=== PATIENT | male | born 1990 | race Caucasian/White ===

== ENCOUNTER → 2023-06-12 11:55 | Outpatient (REF) | payer OTHER, SELFPAY | LOC: REG 11:55 | PROVIDERS: ATTENDING PHYSICIAN Nurse Practitioner | DX: R10.11 Right upper quadrant pain (principal) | CPT/HCPCS: 71046 ==

== ENCOUNTER 2023-12-01 16:34 | Day surgery (SDC) | payer OTHER, SELFPAY ==
[2023-12-01] VITALS (7 sets, daily range): BP systolic 88–136; BP diastolic 17–96; BMI 28.0; BMI 27.8
[2023-12-01 12:54] LABS: % Basophils 0.2 % (0-2); % Eosinophils 0.4 % (0-6); % Immature Granulocytes 0.3 % (0-0.5); % Lymphocytes 12.8 % (20.5-51.1); % Neutrophils 80.3 % (42.2-75.2); Absolute Eosinophils 0.1 10^3/uL (0-0.7); Absolute Lymphocytes 1.6 10^3/uL (1.2-3.4); Absolute Monocytes 0.7 10^3/uL (0.1-0.6); Hematocrit 39.7 % (39.0-52.0); Hemoglobin 14.3 g/dL (13.0-18.0); Mean Corpuscular Hgb 29.4 pg (27.0-31.0); Mean Corpuscular Volume 81.5 fL (80.0-94.0); Mean Platelet Volume 9.3 fL (7.4-10.4); Nucleated Red Blood Cells % 0 % (-); Platelet Count 288 10^3/uL (130-400); Red Blood Cell Count 4.87 10^6/uL (4.70-6.10); Red Cell Dist. Width 12.2 % (11.5-14.5); White Blood Cell Count 12.4 10^3/uL (4.8-10.8)
[2023-12-01 12:58] LABS: Urine Albumin Negative (Neg - Trace); Urine Bilirubin Negative (Negative); Urine Character Clear (Clear); Urine Color Yellow; Urine Glucose Negative (Negative); Urine Ketone Negative (Negative); Urine Leukocyte Negative (Negative); Urine Nitrite Negative (Negative); Urine Occult Blood Negative (Negative); Urine Urobilinogen Negative (Neg - 1+)
--- NOTE | 2023-12-01 13:03 | ED.GENMED ---
History of Present Illness
General
Chief Complaint: Abdominal Pain
Source: patient
Exam Limitations: none
Time Seen by Provider: 12/01/23 12:35
Nursing documentation reviewed up to this point in time: agreed with
History of Present Illness
History of Present Illness:
The patient is a very pleasant 33 yr old man with constant RLQ pain since yesterday. Pt reports mild nausea. pain is worse with movement and bearing down. pt reports no BM today. one episode of nonbloody diarrhea yesterday. no radiation of pain. no
urinary symptoms
Past History
Past History
ED Past Medical History: HTN
ED Past Surgical History: Other (thoracentesis)
Social History
Tobacco: Other
Alcohol: Other
Drug: Other
Personal:
Living: with family
Employment: Employed
Family History
Family History: Other
Review of Systems
Review of Systems
Allergies reviewed?: Yes
All Other Systems: ROS reviewed and negative except as documented in HPI and ROS
Constitutional: Reports no symptoms
EENT: Reports no symptoms
Respiratory: Reports no symptoms
Cardiac: Reports no symptoms
ABD/GI: Reports abdominal pain, nausea, diarrhea and constipated
: Reports no symptoms
Musculoskeletal: Reports no symptoms
Skin: Reports no symptoms
Neurological: Reports no symptoms
Endocrine: Reports no symptoms
Hematologic/Lymphatic: Reports no symptoms
Psychiatric: Reports no symptoms
Phy Exam
Physical Exam
Physical Exam:
Physical Exam
General: no apparent distress, not acutely ill
Neck: supple. no meningeal signs. normal psoterior pharynx
Heart: s1/s2 regular rate and rhythm, no murmur. equal radial pulses.
Lungs: no acute respiratory distress. clear bilaterally
Abdomen: Diminished bowel sounds. Right lower quadrant tenderness. Positive rebound. No guarding. No periumbilical tenderness
Neuro: alert and oriented. no focal neurological deficits
Skin: no rash
Psychiatric: well kept. interactive and cooperative
Extremities: no edema. no calf tenderness. negative homans. good distal pulses
Course
Orders/Labs/Results
Orders:
Orders
12/01/23 12:45
Complete Blood Count/With Diff Urgent
Comprehensive Metabolic Panel Urgent
Urinalysis Reflex To Culture Urgent
Date Specimen was Collected: 12/01/23
Time Specimen was Collected: 12:43
12/01/23 13:03
CT Abd/pelvis W Iv Cont Urgent
Comment:
Reason For Exam: RLQ pain since yesterday
12/01/23 13:06
Ketorolac [Toradol] 30 mg IV NOW STA
12/01/23 15:12
Piperacillin/Tazo 4.5 Gram [Zosyn] 4.5 gram in 100 ml IV NOW
Abnormal Lab Results
12/01/23
12:45
WBC 12.4 H 10^3/uL
(4.8-10.8)
Absolute Neuts (auto) 10.0 H 10^3/uL
(1.4-6.5)
Absolute Monos (auto) 0.7 H 10^3/uL
(0.1-0.6)
Neutrophils % 80.3 H %
(42.2-75.2)
Lymphocytes % 12.8 L %
(20.5-51.1)
Chloride 97 L mmol/L
(98-107)
Glucose 100 H mg/dl
(70-99)
ALT 73 H U/L
(0-50)
12/01/23 12:45
12/01/23 12:45
Vital Signs
Initial and Last Documented VS:
Initial Vital Signs
Temp Pulse Resp BP Pulse Ox
98.4 F 72 16 136/96 98
12/01/23 11:58 12/01/23 11:58 12/01/23 11:58 12/01/23 11:58 12/01/23 11:58
Last Documented Vital Signs
Temp Pulse Resp BP Pulse Ox
98.4 F 72 16 129/79 98
12/01/23 11:58 12/01/23 11:58 12/01/23 11:58 12/01/23 12:35 12/01/23 14:15
MDM/Problems Addressed
Differential Diagnosis Includes:
acute appy, acute diverticulitis, constipation, pyelo
MDM/Problems Addressed:
acute RLQ ab pain
Chronic conditions affecting care: HTN
*Radiology
Radiology exam reviewed: radiology read reviewed
*Pulse Oximetry
Patient hypoxic: no
*EKG
Interpreted by ED Provider?: NA
*Congressional Assistant Interpretation
Rate: Congressional Assistant- N/A
*Critical Care Note
Total Time (30-74mins, 75-104mins- exclusive of procedures): Not Applicable
Patient Management
Discussion with other providers: Other (Reached out to Dr. Jai Saldaña to discuss the patient's presentation and CT)
ED Attending Note
-
Portions of this chart may have been created with voice recognition software.� Occasional wrong word or��sound alike� substitutions may have occurred due to the inherent limitations of voice recognition software.
Discharge Plan
Departure
Patient Disposition: Admit
Date of Disposition: 12/01/23
Time of Disposition: 15:04
Admit to: Med/Surg
Admit to doctor: Dr Saldaña
Presentation/result/management discussed w/ accepting MD/DO: Dr Saldaña
Patient with high blood pressure during this ER visit?: Yes
Condition: Good
Covid-19: Not Applicable
Discharge Problem:
Acute appendicitis
Prescriptions:
No Action
lisinopril 10 MG tablet
10 mg PO DAILY Qty: 30 0RF
hydrochlorothiazide 25 mg Tablet
25 mg PO DAILY
amoxicillin-pot clavulanate [Augmentin] 875-125 mg Tablet
1 tab PO BID
amlodipine 5 MG tablet
10 mg PO DAILY
Interventions
Interventions:
*Risk Screen - Suicide Last Done: 12/01/23 11:58
*General Assessment Last Done: 12/01/23 11:58
*Neglect/Abuse Screening Last Done: 12/01/23 11:58
ED- Fall Risk Assessment Last Done: 12/01/23 12:57
*ED COVID-19 Vaccine History Last Done: 12/01/23 11:58
AI-Jfduyv-Gomttwaekr Assessment Last Done: 12/01/23 12:57
Discharge Date and Time
Print Language: UPPER SORBIAN
[2023-12-01] MEDS: TORADOL 30 MG IV (13:08)
[2023-12-01 13:14] LABS: ALT (SGPT) 73 U/L (0-50); AST (SGOT) 34 U/L (17-59); Albumin 4.8 g/dl (3.5-5.0); Alkaline Phosphatase 116 U/L (38-126); Blood Urea Nitrogen 11 mg/dl (9-20); Calcium 10.1 mg/dl (8.4-10.2); Carbon Dioxide 29 mmol/L (22-30); Chloride 97 mmol/L (98-107); Estimated Creatinine Clearance > 125 ml/min; Glucose 100 mg/dl (70-99); Potassium 4.3 mmol/L (3.5-5.1); Sodium 137 mmol/L (135-145); Total Bilirubin 1.1 mg/dl (0.2-1.3); Total Protein 7.1 g/dl (6.3-8.2); eGFR > 60.00
--- NOTE | 2023-12-01 15:28 | HPS.HSE ---
Addendum entered and electronically signed by Jai Saldaña MD 12/02/23 10:46:
I saw and examined the patient.
The Medical Education Coordinator's note was reviewed and I agree with the note.
Comment: 33M with acute onset RLQ pain. CT c/w acute appendicitis. Exam with ttp to RLQ. PLan for lap appy.
Original Note:
Family Physician
-
Family Physician:
Chief Complaint
-
RLQ pain
History of Present Illness
33 yo male with a h/o right shoulder labral repair and HTN who has been on Augmentin for sinusitis for the past 8-9 days who presents with abdominal pain which began yesterday. Initially, his pain was generalized but this morning it localized to the
right lower quadrant with associated nausea and vomiting. He has had a poor appetite all day and has not eaten. He denies fevers or chills. He had an episode of diarrhea yesterday prior to onset of pain but has passed no BM's since. He denies
difficulty voiding but does note pain increases as he empties his bladder. He denies fevers or chills.
Medical History
Past Medical History
Past Medical History: Reports HTN
Past Surgical History: Reports Orthopedic (labral repair right shoulder)
Social History
Tobacco: Non-smoker
Alcohol: Occasional
Personal:
Living: With Family
Family History
Family History: Not pertinent
Allergies / Home Medications
Allergies reflects when Allergies were last updated in [facility].
Home Medications with original date entered in [facility]
Allergy/Medication List:
Patient Allergies
Allergy/AdvReac Type Severity Reaction Status Date / Time
No Known Allergies Allergy Verified 10/01/20 09:49
�Medication �Instructions �Recorded �Confirmed �Type
lisinopril 10 mg tablet 10 mg PO DAILY #30 tabs 10/03/20 12/01/23 Rx
amlodipine 5 mg tablet 10 mg PO DAILY 12/01/23 12/01/23 History
amoxicillin 875 mg-potassium 1 tab PO BID 12/01/23 12/01/23 History
clavulanate 125 mg tablet
hydrochlorothiazide 25 mg tablet 25 mg PO DAILY 12/01/23 12/01/23 History
Review of Systems
-
History Source: Patient and Family
A 12 point ROS was completed and negative except as noted: Yes
Physical Exam
Vital Signs
Vital Signs
Temp Pulse Resp BP Pulse Ox
98.4 F 72 16 129/79 98
12/01/23 11:58 12/01/23 11:58 12/01/23 11:58 12/01/23 12:35 12/01/23 14:15
Physical Exam
General: Well Developed, Well Nourished and No Apparent Distress
HEENT: NormoCephalic and Moist mucous membranes
Respiratory: Non Labored Respirations
GI: Soft and Tender (RLQ without rebound, rigidity or guarding)
Skin: Warm and Dry
Neuro: Awake, Alert and AO x 3
Psych: Calm
Laboratory Results
-
12/01/23 12:45
12/01/23 12:45
Laboratory Results
Total Bilirubin 1.1 mg/dl (0.2-1.3) 12/01/23 12:45
AST 34 U/L (17-59) 12/01/23 12:45
ALT 73 U/L (0-50) H 12/01/23 12:45
Alkaline Phosphatase 116 U/L (38-126) 12/01/23 12:45
Data Reviewed
-
CT Scan: Image Personally Visualized and interpreted, Report Reviewed by me, Discussed with Physician, Discussed with Patient and Discussed with Family
Lab Data: Labs Reviewed by me, Discussed with Physician, Discussed with Patient and Discussed with Family
Old Records: Reviewed
Impression/Plan
-
IMPRESSION:
33 yo male presenting with 1 day of abdominal pain now localizing to the RLQ with n/v this am. Afebrile with stable vital signs. Mild leukocytosis on labs. CT imaging consistent with acute appendicitis without evidence of perforation.
Discussed operative intervention vs antibiotics alone; high likelihood of failure with abx alone given recent history of abx use. Will pursue surgical management.
PLAN:
Continue IV Zosyn 3.375gm q6h
Lap appendectomy once OR available, likely in AM
Clears tonight and NPO after MN
Analgesics/Antiemetics as needed
Continue home meds with parameters
SCD's for VTE ppx
[2023-12-01] MEDS: ZOSYN 100 IV (15:38)
--- NOTE | 2023-12-01 17:02 | PTCARENOTE ---
Patient received from ED in stretcher; Patient ambulated to bed; Patient alert to self, place, and time; States pain is in the right side of the abdomen, rates it between 6-7 out of 10, await medications to be verified; Patient denies
nausea/vomiting; Call kenny within reach; Bed in lowest position, wheels locked; Assessment ongoing
[2023-12-01] MEDS: NSS 1000 IV (17:15)
[2023-12-01] MEDS: ROXICODONE 5 MG PO (17:15)
[2023-12-01] MEDS: ZOSYN 50 IV (21:57)
[2023-12-02] VITALS (7 sets, daily range): BP systolic 119–152; BP diastolic 54–79
[2023-12-02] MEDS: ROXICODONE 5 MG PO ×2 (01:19→08:09)
[2023-12-02] MEDS: ZOSYN 50 IV ×2 (03:54→10:09)
[2023-12-02] MEDS: NSS 1000 IV (03:54)
--- NOTE | 2023-12-02 10:47 | OR.RPT ---
Operative Report
Operative Report
Primary Surgeon: Piotr
Assisting: Mohinder FRIAS
Pre-op Diagnosis: Acute appendicitis
Post-op Diagnosis: Same
Procedure Performed: Laparoscopic appendectomy
Anesthesia Type: GETA
Specimen / Cultures: Appendix
Estimated Blood Loss: 10cc
Complications: None immediate
Operative Findings: Inflamed distal appendix, dilated proximal appendix, no perforation, no pus, no gangrene
Date of Surgery: 12/02/23
Indications: This 33M developed right lower quadrant abdominal pain and on workup was found to have acute appendicitis. Laparoscopic appendectomy was elected.
Description of procedure: The patient was placed on the operating table in the supine position. General anesthesia was induced. A time-out was completed verifying correct patient, procedure, site, positioning, and special equipment prior to
beginning this procedure. An orogastric tube was placed. The abdomen was prepped and draped in the usual sterile fashion. A stab incision was made in left upper quadrant and the Veress needle was inserted. Proper position was confirmed by aspiration
and saline meniscus test. The abdomen was insufflated with carbon dioxide to a pressure of 12 mmHg. The patient tolerated insufflation well.
A 5mm optical trocar was then inserted at the left lower quadrant. The laparoscope was inserted and the abdomen inspected. No injuries from initial trocar placement or Veress needle insertion were noted. Additional trocars were then inserted in the
following locations: a 12-mm trocar at the umbilicus and a 5-mm trocar midline in the suprapubic space. The abdomen was inspected and no abnormalities were found. The table was placed in the Trendelenburg position with the right side up. The tip of
the appendix was gently grasped with an atraumatic grasper and retracted toward the patient�s feet and abdominal wall. This maneuver exposed the appendiceal blood supply which was controlled with the Ligasure device. Following this, a laparoscopic
linear cutting stapler with a 45mm sanchez load was deployed and used to transect the appendix at its base. The appendix was placed in an endoscopic retrieval bag, removed through the umbilical port, and passed off the table as a specimen.
We then turned our attention to the staple line, which was noted to be hemostatic. All free fluid was suctioned. The umbilical trocar site was closed at the fascial level laparoscopically with 2-0 PDS under direct vision. Secondary trocars were
removed under direct vision and noted to be hemostatic. The laparoscope was withdrawn and the abdomen was allowed to collapse. The skin was closed with subcuticular sutures of 4-0 monocryl and topical skin adhesive. The orogastric tube was removed.
The patient tolerated the procedure well and was taken to the postanesthesia care unit in stable condition.
--- NOTE | 2023-12-02 12:17 | CM ---
Patient seen at bedside with father present. patient states that he has had surgery and his plan is for discharge home with no needs. Patient lives with in an apartment with elevator. Patient PCP is Dr. Chavez and he uses the [facility] in [place]. Per
PA patient to be changed to SDS s/p surgery and patient updated about change. CM will continue to follow for discharge planning needs.
Plan; home with no needs.
--- NOTE | 2023-12-02 16:30 | W.DS.TRANS ---
DC Summary - Head Of Product
-
Discharge Instructions:
Discharge Diagnosis/Procedures Appendicitis with laparoscopic appendectomy
Diet Regular,As tolerated
Activity No strenuous activity
Additional Activity Do not lift over 15 pounds for the next 2-3
weeks
Driving Restrictions No driving for 24 hours
Bathing Restrictions OK to shower 24h after procedure
Wound Care Wash incisions gently with soap and water. Allow
the glue to flake off on it's own over the next
2-3 weeks
Instructions:
Stand-Alone Forms:
Changes to Home Medications: No
Discharge Medications:
DC Medications w/original date entered in [facility]
lisinopril 10 mg tablet 10 mg PO DAILY #30 tabs 10/03/20
amlodipine 5 mg tablet 10 mg PO DAILY 12/01/23
amoxicillin 875 mg-potassium clavulanate 125 mg tablet 1 tab PO BID 12/01/23
hydrochlorothiazide 25 mg tablet 25 mg PO DAILY 12/01/23
acetaminophen 325 mg tablet 650 mg (2 x 325 mg) PO Q4HPRN PRN mild pain #1 tab 12/02/23
ibuprofen 200 mg tablet 400 - 600 mg (2 - 3 x 200 mg) PO Q6HPRN PRN moderate pain #1 tab 12/02/23
oxycodone 5 mg tablet 5 mg PO Q4HPRN PRN breakthrough/severe pain #10 tabs 12/02/23
Home Medication Changes
Pending Results: No
== END 2023-12-02 14:14 | disposition home or self-care (01) ==
LOC: PACU 16:34
PROVIDERS: ATTENDING PHYSICIAN Surgery; EMERGENCY PHYSICIAN Emergency Medicine; FAMILY PHYSICIAN Internal Medicine
DX: K35.80 Unspecified acute appendicitis (principal); I10 Essential (primary) hypertension
CPT/HCPCS: 44970; 88304; 74177; 80053; 81003; 85025; 96365; 96375; 99285; C1776; G0378; Q9967